=== PATIENT | female | born 1945 | race Two or more races ===

== ENCOUNTER → 2025-03-02 | Outpatient (CLI) | payer MEDICAID, SELFPAY ==
--- NOTE | 2025-03-02 11:30 | XR_ITS ---
Examination: Abdomen sonogram, complete Date and time of exam: March 02, 2025 1121 hrs. Indications: Left flank pain beginning 3 months ago Technique Multiple real-time grayscale transabdominal sonographic images of the abdomen have been obtained. Findings: Normal gallbladder Normal common bile duct 0.4 cm Pancreatic head 2.3 cm Aorta not enlarged Liver 12.3 cm smooth contour Normal hepatopedal portal venous flow Patent IVC Right kidney 9.0 cm cortex 1.6 cm Left kidney 9.4 cm cortex 1.9 cm Mild bilateral renal parenchymal scar formation No hydronephrosis Spleen 7.6 cm Impression: Normal gallbladder Mild bilateral renal parenchymal scar formation No hydronephrosis
== END | disposition home or self-care (01) ==
LOC: CDIM 11:08
PROVIDERS: PCP Nurse Practitioner Family; Referring Provider Physician Assistant; Visit Provider Physician Assistant
DX: N28.89 Other specified disorders of kidney and ureter (principal)
CPT/HCPCS: 76700

== ENCOUNTER 2025-06-12 09:30 | Outpatient (RCR) | payer MEDICAID, SELFPAY ==
--- NOTE | 2025-06-12 | XR_ITS ---
Examination: ERNSTA, hepatobiliary radioisotope scan Gallbladder ejection fraction study. Date and time of exam: June 17, 2025 1044 hours INDICATIONS: Heartburn acid reflux upper abdominal pain 5 months Technique: 5.6 mCi of 99M Hepatolite administered. Serial imaging then obtained from immediate through 60 minutes. 1.2 mcg selective catheter Kinevac administered for gallbladder ejection fraction study. Findings: Radioisotope activity within the liver is reasonably homogenous. Gallbladder, common bile duct small bowel activity noted Impression: Gallbladder activity Abnormal gallbladder ejection fraction 29% normal greater than 35%
== END 2025-06-17 23:59 | disposition home or self-care (01) ==
LOC: SNUC 09:30
PROVIDERS: PCP Nurse Practitioner Family; Referring Provider Internal Medicine Gastroenterology; Visit Provider Internal Medicine Gastroenterology
DX: R93.2 Abnormal findings on diagnostic imaging of liver and biliary tract (principal); R10.11 Right upper quadrant pain; R10.13 Epigastric pain
CPT/HCPCS: 78227; A9537; J2805